=== PATIENT | male | born 1975 | race African-American/Black ===

== ENCOUNTER 2016-09-26 20:38 | Emergency (ER) | payer OTHER ==
--- NOTE | ~2016-09-26 | CR139 ---
[facility] A Service of [facility] RADIOLOGY TEXT RESULTS PATIENT: ANISH NEUMANN LOCATION: SED : [birth year] UNIT #: [id number] AGE: [address]: Lakisha Canseco APRN SEX: M ORDER DR: [id number] [place] [id number] E MR#: [id number] Acc #: [id number] NAME: ANISH NEUMANN : 1975 SEX: M STUDY DATE/TIME: 09/26/2016 19:48 UNIT: SED ROOM: STUDY DESCRIPTION: CR Hand 2 Views Rt Attending Physician: Lakisha Canseco A.P.R.N. Ordering Physician: Lakisha Winkler A.P.R.N. Primary Care Physician: Scott Bean M.D. MEDICAL IMAGING REPORT This report is preliminary unless electronic signature is present. EXAM Right hand, 09/26 HISTORY Hand pain that started 2 days ago. No recent trauma. FINDINGS Two views of the right hand are compared with 11/08/2014. The patient is status post ORIF of the fourth and fifth metacarpals. The plate and screws have been largely removed from the fourth metacarpal fracture except for three screw fragments. There are numerous small radiopaque foreign bodies in the adjacent soft tissues. No acute fractures are seen. 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 Probably an old fracture of the head of the fifth proximal phalanx. IMPRESSION No acute findings in the hand. Old fractures as above. Interval plate removal from the fourth metacarpal. Dictated by... Alfredo Hayden Jr., M.D. THIS IS AN ELECTRONICALLY VERIFIED REPORT Alfredo Hayden Jr., M.D. at 09/27/2016 10:09 AM RAVI/danna TD: 09/27/2016 10:04 JOB #: [id number] MEDICAL IMAGING REPORT [facility] A Service of [facility] RADIOLOGY TEXT RESULTS PATIENT: ANISH NEUMANN LOCATION: [facility] [place] : [birth year] UNIT #: [id number] AGE: [address]: Lakisha Canseco APRN SEX: M ORDER DR: Page 1 of 1
--- NOTE | ~2016-09-26 | CR229 ---
[facility]. [facility] A Service of [facility] & [facility] RADIOLOGY TEXT RESULTS PATIENT: ANISH NEUMANN LOCATION: SED : [birth year] UNIT #: [id number] AGE: [address]: Lakisha Canseco APRN SEX: M ORDER DR: [id number] [place] [id number] E MR#: [id number] Acc #: [id number] NAME: ANISH NEUMANN : 1975 SEX: M STUDY DATE/TIME: 09/26/2016 19:48 UNIT: SED ROOM: STUDY DESCRIPTION: CR Shoulder Min 2 View Lt Attending Physician: Lakisha Canseco A.P.R.N. Ordering Physician: Lakisha Winkler A.P.R.N. Primary Care Physician: Scott Bean M.D. MEDICAL IMAGING REPORT This report is preliminary unless electronic signature is present. EXAM Left shoulder 09/26/2016 INDICATIONS Shoulder pain for the last 2 days. No trauma. FINDINGS 3 views of the left shoulder were obtained. There is no fracture or dislocation. There is no AC joint separation. IMPRESSION Normal left shoulder. Dictated by... Alfredo Hayden Jr., M.D. THIS IS AN ELECTRONICALLY VERIFIED REPORT Alfredo Hayden Jr., M.D. at 09/27/2016 10:08 AM RAVI/roger TD: 09/27/2016 10:04 JOB #: [id number] MEDICAL IMAGING REPORT Page 1 of 1
[~2016-09-26 20:38] MED LIST: ACULAR10 ML OU; ALBUTEROL17 G1 IH; ALBUTEROL17 GM INH; ALPRAZOLAM PO; BENTYL20 MG PO; BENZONATATE PO; CELEXA; CELEXA PO; CELEXA10 M1; DOXYCYCLINE PO; ERYTHROMYCIN O3.5 G1 OU; FLEXERIL10 M1 PO; FLEXERIL10 MG PO; HYDROCODON-ACE1 EAC5 PO; HYDROCODONE-APA1 T50 PO; IBUPROFEN PO; IBUPROFEN800 MG PO; KEFLEX PO; LEVAQUIN PO; LIDOCAINE PATCH TOP; LORTAB 10-3251 EACH PO; LORTAB 101 TAB 10/5 PO; MOTRIN400 MG PO; MOTRIN50 MG PO; MUCINEX DM1 TAB.SR . PO; NAPROXEN PO; NO MEDICATIONS; PHENERGAN PO; PROMETHAZINE V240 ML PO; RISPERDAL0.5 M2 PO; RISPERDAL1 M1 PO; RISPERIDONE; ROBAXIN 750750 MG PO; SYMBICORT INH; VOLTAREN50 MG PO; VOLTAREN75 MG PO; XANAX1 MG PO; ZITHROMAX PO
== END 2016-09-26 20:45 | disposition home or self-care (01) ==
LOC: SED 20:38
DX: S46.911A Strain of unspecified muscle, fascia and tendon at shoulder and upper arm level, right arm, initial encounter (principal); M79.641 Pain in right hand; J45.909 Unspecified asthma, uncomplicated; F31.9 Bipolar disorder, unspecified; F17.210 Nicotine dependence, cigarettes, uncomplicated; X58.XXXA Exposure to other specified factors, initial encounter
CPT/HCPCS: 29280; 73030; 73120; 99284

== ENCOUNTER 2016-10-31 12:49 | Emergency (ER) | payer OTHER | END 2016-10-31 13:05 | disposition home or self-care (01) | LOC: CFTX 12:49 | DX: G89.29 Other chronic pain (principal); M25.512 Pain in left shoulder; J45.909 Unspecified asthma, uncomplicated; F31.9 Bipolar disorder, unspecified; F17.210 Nicotine dependence, cigarettes, uncomplicated; Z98.890 Other specified postprocedural states; Z79.899 Other long term (current) drug therapy | CPT/HCPCS: 96372; 99283; J1885 ==